=== PATIENT | male | born 1995 | race Caucasian/White ===

== ENCOUNTER 2019-10-05 18:03 | Emergency (ER) | payer OTHER ==
[2019-10-05 18:56] VITALS: BP 148/91
[2019-10-05 20:13] LABS: Influenza B Molecular POSITIVE (Negative)
--- NOTE | 2019-10-05 21:14 | UC ---
FLU HPI - HPI Summary HPI Summary: Patient is a 24yo male presenting with sore throat and nonproductive cough x3 days and nasal congestion, chills/sweats, fatigue, and body aches since yesterday. Denies sob and wheezing. Denies n/v. Notes loose stools x3 days without abd pain. Denies hematochezia. Patient states taking dayquil without much relief. - History of Current Complaint Chief Complaint: UCGeneralIllness Stated Complaint: FLU LIKE SYMPTOMS Hx Obtained From: Patient Pain Intensity: 0 Pain Scale Used: 0-10 Numeric - Allergy/Home Medications Allergies/Adverse Reactions: Allergies Allergy/AdvReac Type Severity Reaction Status Date / Time No Known Allergies Allergy Verified 10/05/19 18:51 Home Medications: Home Medications Acetaminophen/Diphenhydramine [Tylenol Pm Ex-Strength Caplet] 2 tab PO ONCE 11/23 [History Confirmed 10/05/19] D-Methorphan/PE/Acetaminophen [Day Time Cold-Flu Relief Liq] 1 dose PO ONCE 11/23 [History Confirmed 10/05/19] PMH/Surg Hx/FS Hx/Imm Hx Previously Healthy: Yes - Surgical History Surgical History: None - Family History Known Family History: Positive: Hypertension - Social History Alcohol Use: Rare Substance Use Type: Marijuana Substance Use Comment - Amount & Last Used: daily Smoking Status (MU): Never Smoked Tobacco Review of Systems All Other Systems Reviewed And Are Negative: Yes Constitutional: Positive: Fever, Chills, Fatigue Eyes: Positive: Negative ENT: Positive: Sore Throat, Sinus Congestion. Negative: Ear Ache Respiratory: Positive: Cough - mild nonproductive. Negative: Shortness Of Breath Cardiovascular: Positive: Negative Gastrointestinal: Positive: Diarrhea - loose stool. Negative: Abdominal Pain, Vomiting, Nausea Musculoskeletal: Positive: Myalgia Neurological: Positive: Headache Physical Exam Triage Information Reviewed: Yes Appearance: No Pain Distress, Ill-Appearing Vital Signs: Initial Vital Signs Temp 98.8 F 10/05/19 18:52 Pulse 89 10/05/19 18:52 Resp 16 10/05/19 18:52 BP 148/91 10/05/19 18:52 Pulse Ox 100 10/05/19 18:52 Lab Results 10/05/19 10/05/19 Range/Units 20:07 20:09 Influenza B (Rapid) Positive A (Negative) Group A Strep Rapid Positive A (Negative) Vital Signs Reviewed: Yes Eyes: Positive: Conjunctiva Inflamed ENT: Positive: Hearing grossly normal, Pharyngeal erythema, Nasal congestion, TMs normal, Tonsillar swelling, Uvula midline. Negative: Tonsillar exudate Neck exam: Normal Neck: Positive: Supple, Nontender, No Lymphadenopathy Respiratory Exam: Normal Respiratory: Positive: Lungs clear, Normal breath sounds, No respiratory distress Cardiovascular Exam: Normal Cardiovascular: Positive: RRR Neurological: Positive: Alert Psychological: Positive: Age Appropriate Behavior Skin Exam: Normal Flu Course/Dx - Course Course Of Treatment: Rapid strep and flu positive. I treated with penicillin v for strep throat and tamiflu for influenza. Instructed to continue with symptomatic treatment and follow up with pcp if symptoms persist or go to ED with any new or worsening symptoms. Patient voiced understanding and agreed with treatment plan. - Differential Dx/Diagnosis Provider Diagnosis: Strep pharyngitis, Influenza Discharge ED - Sign-Out/Discharge Documenting (check all that apply): Patient Departure All imaging exams completed and their final reports reviewed: No Studies - Discharge Plan Condition: Stable Disposition: HOME Prescriptions: Oseltamivir CAP* [Tamiflu CAP*] 75 mg PO BID #10 cap Penicillin VK 500 MG TAB(NF) [Penicillin VK 500 mg Tab] 500 mg PO BID #20 tab Patient Education Materials: Strep Throat (ED), Influenza (ED) Forms: *Work Release Referrals: [facility] [Outside] - If Needed Additional Instructions: As discussed, you tested positive for strep throat and the flu today. Take penicillin v and tamiflu as prescribed. You may take ibuprofen and/or tylenol as directed for fever and pain relief. You may use over the counter throat sprays or lozenges for symptomatic relief. Get plenty of rest and increase your fluid intake. Follow up with your primary care provider or the [facility] listed below if symptoms do not resolve within 7 days. - Billing Disposition and Condition Condition: STABLE Disposition: Home - Attestation Statements Provider Attestation: Patient not seen by me I was available for consult Chart reviewed LOLIS
== END 2019-10-05 20:31 | disposition home or self-care (01) ==
LOC: UCCORT 18:03
DX: J11.1 Influenza due to unidentified influenza virus with other respiratory manifestations (principal); J02.0 Streptococcal pharyngitis
CPT/HCPCS: 87651; 99202; G0463